=== PATIENT | male | born 1965 | race Caucasian/White ===

== ENCOUNTER 2022-11-15 07:41 | Outpatient (REF) | payer OTHER, SELFPAY ==
--- NOTE | ~2022-11-15 | XR_ITS ---
EXAMINATION: XR KNEE, LEFT CLINICAL INFORMATION: Left knee pain. COMPARISON: 05/02/2022 TECHNIQUE: Three views of the left knee. FINDINGS: Appearance is similar to previous. Hardware is not changed in position. There is loss of joint space medially and laterally with likely meniscal calcifications and marginal spurring. This is felt to be mildly worsening from previous exam. The patella is fairly well seated on the sunrise image. Likely postsurgical change proximal tibial metaphysis. Mild patellofemoral spurring. XR/XR knee LT 3V IMPRESSION: Findings suggest an ongoing degeneration in the left knee from previous with some increased loss of joint space medially and laterally. Meniscal calcifications are noted.
== END 2022-11-15 07:42 | disposition home or self-care (01) ==
LOC: HO.HOSX 07:41
PROVIDERS: Visit Provider Orthopaedic Surgery
DX: M25.562 Pain in left knee (principal)
CPT/HCPCS: 73562; 99202

== ENCOUNTER 2022-11-15 12:58 | Outpatient (AMB) | payer OTHER, SELFPAY ==
--- NOTE | 2022-11-15 13:10 | A.OFFVIS_ITS ---
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 The patient has undergone bilateral anterior cruciate ligament reconstructive surgeries in the past. He underwent left knee anterior cruciate ligament reconstruction surgery in approximately 1989 after injuring his knee while skiing. The patient also underwent right knee anterior cruciate ligament reconstruction after suffering an injury while playing indoor soccer. He did undergo left knee arthroscopic surgery in 2008. That surgery gave him fairly good relief. He states when he was changing position when sleeping and he felt a sharp pain in the medial aspect of the knee last fall. The patient states that he has been evaluated by other orthopedic surgeons in the past. One orthopedic surgeon recommended proceeding with total knee replacement surgery because he did not feel that arthroscopic surgery would give him any significant relief. Another orthopedic surgeon feels that arthroscopic surgery would indeed give the patient significant relief. At this point the patient questions whether not an arthroscopic procedure would likely give him significant relief or potentially aggravate his symptoms. The patient presents here for a second opinion. Allergies cephalexin Allergy (Unknown, Verified 11/15/22 13:13) Rash piroxicam [Feldene] Allergy (Unknown, Verified 11/15/22 13:13) Rash prednisone Allergy (Unknown, Verified 11/15/22 13:13) Rash PFSH Social History (Updated 11/15/22 @ 13:13 by Inga Klein) Alcohol intake: current Patient Tobacco Use Status: Never used Tobacco Physical Exam Const Other: Well-nourished well-developed very friendly male awake alert and oriented x3 in no acute distress Extrem Other: Left knee examination shows that the surgical incisions are well healed, no erythema, no signs of infection, full active extension and flexion to 115 degrees, tenderness along his medial and lateral joint lines, minimal crepitus with range of motion Results Reviewed Results Reviewed: X-rays of the patient's left knee taken today show moderate diffuse joint space narrowing, no acute bony abnormalities MRI of the patient's left knee shows mild to moderate diffuse degenerative changes as well as tearing of his medial and lateral menisci, partial tearing of the anterior cruciate ligament graft but no full-thickness tear noted Assessment & Plan Assessment & Plan (1) Left knee pain: Code(s): M25.562 - Pain in left knee Plan: Mr. Basilio presents with progressively worsening left knee pain and mechanical symptoms due to early degenerative joint disease as well as tearing of his medial and lateral menisci. I had a lengthy discussion with the patient regarding the treatment options. The patient does have a tentative plan to undergo arthroscopic surgery by another orthopedic surgeon with possible PRP injections to follow if needed. The patient questions whether not the planned arthroscopic surgery could aggravate or worsen his symptoms. I discussed with the patient the fact that I do not feel that the arthroscopic surgery will cause his symptoms to be worse. Most likely his symptoms will improve significantly following arthroscopic surgery due to the meniscus tearing and his symptoms. The patient will follow-up with his primary orthopedic surgeon as scheduled. If the patient wishes to have me perform his arthroscopic surgery I have no problem with this. He will contact my office to pick a surgery date if he chooses to do so. Feel free to call me at any time should questions regarding his orthopedic management arise. Orders: Orders XR knee LT 3V 11/15/22 M25.562 - Pain in left knee Coding Level of Care Code New Pt Level 2 (01379) Diagnoses Left knee pain M25.562
== END 2022-11-15 13:50 | disposition home or self-care (01) ==
PROVIDERS: PCP Internal Medicine; Visit Provider Orthopaedic Surgery
DX: M25.562 Pain in left knee (principal)
CPT/HCPCS: 99202

== ENCOUNTER 2022-12-18 14:02 | Outpatient (AMB) | payer OTHER, SELFPAY ==
--- NOTE | 2022-12-18 14:09 | MHC.OFFVIS ---
Intake Vital Signs 12/18/22 14:10 Height 5 ft 9 in Weight 175 lb BMI 25.8 Intake Visit Reasons: Pre-Lt Knee Arthroscopy Intake Note: Celestine is a 57 year old male who presents today for his left knee pain. The patient has undergone bilateral anterior cruciate ligament reconstructive surgeries in the past. He underwent left knee anterior cruciate ligament reconstruction surgery in approximately 1989 after injuring his knee while skiing. The patient also underwent right knee anterior cruciate ligament reconstruction after suffering an injury while playing indoor soccer. He did undergo left knee arthroscopic surgery in 2008. That surgery gave him fairly good relief. He states when he was changing position when sleeping and he felt a sharp pain in the medial aspect of the knee last fall. The patient states that he has been evaluated by other orthopedic surgeons in the past. One orthopedic surgeon recommended proceeding with total knee replacement surgery because he did not feel that arthroscopic surgery would give him any significant relief. Another orthopedic surgeon feels that arthroscopic surgery would indeed give the patient significant relief. At this point the patient questions whether not an arthroscopic procedure would likely give him significant relief or potentially aggravate his symptoms. Pain management agreement reviewed and signed. Allergies cephalexin Allergy (Unknown, Verified 12/18/22 14:15) Rash piroxicam [Feldene] Allergy (Unknown, Verified 12/18/22 14:15) Rash prednisone Allergy (Unknown, Verified 12/18/22 14:15) Rash Medication List - Last Reconciled 12/18/22 by Guzman Wells MD oxycodone 5 mg PO Q6H PRN tadalafil 20 mg PO DIRECTED tamsulosin 0.4 mg PO DAILY PFSH Social History Alcohol intake: current Patient Tobacco Use Status: Never used Tobacco Physical Exam Vital Signs: BMI result Body Mass Index 25.8 Const Other: Well-nourished well-developed very friendly male awake alert and oriented x3 in no acute distress Extrem Other: Bilateral lower extremity examination shows good capillary refill, no skin lesions noted, normal sensation light touch Left knee examination shows minimal crepitus with range of motion, tenderness along his medial and lateral joint lines, positive Gail's test, no instability Results Reviewed Results Reviewed: MRI of the patient's left knee shows mild diffuse degenerative changes as well as tearing of his medial and lateral menisci, thickened plica, no acute bony abnormalities Assessment & Plan Assessment & Plan (1) Tear of medial meniscus of left knee: Code(s): S83.242A - Other tear of medial meniscus, current injury, left knee, initial encounter Plan: Ms. Basilio presents with progressively worsening left knee pain and mechanical symptoms due to early degenerative joint disease as well as tearing of his medial and lateral menisci and plica syndrome. I had a lengthy discussion with the patient regarding the treatment options. At this point he has failed continued non-operative treatments. I do feel that the patient will get significant relief from his discomfort and mechanical symptoms from an arthroscopic procedure. The patient does understand that he may not get 100% relief of his symptoms depending on the severity of his degenerative changes. The patient was given a prescription for oxycodone at his preoperative appointment. He will follow-up as instructed. Feel free to call me at any time should questions regarding his orthopedic management arise. I spent 20 minutes in reviewing the patient's records and imaging studies, seeing the patient and documenting in the medical record. Medications: New oxycodone Partial Fill upon patient request. 5 mg PO Q6H PRN 20 tabs 0RF pain Coding Level of Care Code Est Pt Level 2 (65332) Diagnoses Tear of medial meniscus of left knee S83.242A
[2022-12-18 14:10] VITALS: BMI 25.8
== END 2022-12-18 14:30 | disposition home or self-care (01) ==
PROVIDERS: PCP Internal Medicine; Visit Provider Orthopaedic Surgery
DX: S83.242A Other tear of medial meniscus, current injury, left knee, initial encounter (principal)
CPT/HCPCS: 99212

== ENCOUNTER → 2022-12-18 14:02 | Outpatient (BNVA) | payer OTHER, SELFPAY | PROVIDERS: PCP Internal Medicine; Visit Provider Orthopaedic Surgery | DX: S83.242D Other tear of medial meniscus, current injury, left knee, subsequent encounter (principal) | CPT/HCPCS: 99212 ==

== ENCOUNTER 2022-12-28 09:24 | Day surgery (SDC) | payer OTHER, SELFPAY ==
[2022-12-26 09:40] VITALS: BMI 25.8
--- NOTE | 2022-12-27 12:13 | P.CONAN_ITS ---
Documented by User: Rhina Kim NP 12/27/22 12:59 HPI - Anesthesia Eval Consult details Narrative: 57yo M for Left Knee Arthroscopy,poss partial medial meniscus,poss partial lateral meniscus PMFSH Active Problems Active Problems: All Active Problems (Updated 12/26/22 @ 09:39 by Cecilia Valente RN) Tear of medial meniscus of left knee (Acute) Left knee pain (Acute) Past Medical History Medical History (Updated 12/26/22 @ 09:39 by Cecilia Valente RN) BPH (benign prostatic hyperplasia) Surgical History Surgical History (Updated 12/26/22 @ 09:39 by Cecilia Valente RN) Hx of arthroscopy of left knee History of repair of anterior cruciate ligament of right knee History of repair of anterior cruciate ligament of left knee Social History Social History Alcohol intake: current Patient Tobacco Use Status: Never used Tobacco Advance Directives: No Advance Directives Information Provided: Yes Meds Allergies Allergy/AdvReac Type Severity Reaction Status Date / Time cephalexin Allergy Unknown Rash Verified 12/18/22 14:15 piroxicam [Feldene] Allergy Unknown Rash Verified 12/18/22 14:15 prednisone Allergy Unknown Rash Verified 12/18/22 14:15 Active Medications: Current Medications Clindamycin Phosphate (Cleocin) 900 mg in 50 mls @ 50 mls/hr IV PREOP ONE Stop: 12/28/22 01:00 Home Medications Medication Instructions Recorded Confirmed Last Taken Type tadalafil 20 mg tablet 20 mg PO DIRECTED 12/18/22 12/26/22 Unknown History tamsulosin 0.4 mg capsule 0.4 mg PO DAILY 12/18/22 12/26/22 Unknown History Exam Exam Date and Time: December 27, 2022 1213 Height,Weight and Vital Signs: Height 5 ft 9 in Weight 79.379 kg Assessment and Plan Assessment Anesthesia Assessment: Chart Reviewed Documented by User: Terry Cooper MD 12/28/22 09:27 [facility] Past Medical History Medical History (Updated 12/26/22 @ 09:39 by Cecilia Valente RN) BPH (benign prostatic hyperplasia) Family History Family history of problems with anesthesia: No Surgical History Surgical History (Updated 12/26/22 @ 09:39 by Cecilia Valente RN) Hx of arthroscopy of left knee History of repair of anterior cruciate ligament of right knee History of repair of anterior cruciate ligament of left knee History of Problems with Anesthesia: No Social History Social History Alcohol intake: current Patient Tobacco Use Status: Never used Tobacco Advance Directives: No Advance Directives Information Provided: Yes Meds Allergies Allergy/AdvReac Type Severity Reaction Status Date / Time cephalexin Allergy Unknown Rash Verified 12/18/22 14:15 piroxicam [Feldene] Allergy Unknown Rash Verified 12/18/22 14:15 prednisone Allergy Unknown Rash Verified 12/18/22 14:15 Home Medications Medication Instructions Recorded Confirmed Last Taken Type tadalafil 20 mg tablet 20 mg PO DIRECTED 12/18/22 12/26/22 Unknown History tamsulosin 0.4 mg capsule 0.4 mg PO DAILY 12/18/22 12/26/22 Unknown History Exam Airway Mallampati Class: II TM Dist: >3cm Neck ROM: Full Heart: rrr Lungs: cta Assessment and Plan Assessment Anesthesia Assessment: Anesthesia Plan Discussed Final Anesthetic Review Family History of Problems with Anesthesia: No History of Problems with Anesthesia: No NPO: Yes ASA Class: II Final Preanesthetic Review: No Changes in Pt Med Stat, Meds/Allgs Chart Reviewed, Consent Obtained/Reviewed and Anes Risks/Benef Reviewed Patient Risk: Low Procedure Risk: Low Anesthetic Plan Anesthetic Plan: GA and Agree w/ Assess. and Plan Disposition: Standard PACU
[2022-12-28] VITALS (7 sets, daily range): BP systolic 86–154; BP diastolic 50–93; PULSE 58–78; RESP 14–16; TEMP 36.1–36.4; O2SAT 94–99; BMI 25.8
[2022-12-28] MEDS: Lactated Ringers 1,000 ML 100 ML IVCONT (10:15)
--- NOTE | 2022-12-28 11:40 | P.BOP_ITS ---
Brief Operative Note Date of Service: 12/28/22 Pre-op diagnosis: Left knee degenerative joint disease, left knee medial meniscus tear, left knee lateral meniscus tear Post-op diagnosis: same Procedure: Left knee arthroscopy with left knee arthroscopic partial medial and lateral meniscectomies, left knee arthroscopic plica excision, left knee arthroscopic chondroplasty of the undersurface of the patella Surgeon: Guzman Wells MD Anesthesia: GLMA Was an It Systems Engineer used for this Procedure?: No Estimated blood loss (mL): 10 Pathology: none sent Condition: stable Disposition: PACU
--- NOTE | 2022-12-28 11:42 | P.OP_ITS ---
Operative Note Operative Note Date of Service: 12/28/22 Narrative: After the patient was identified as Celestine Basilio and their left knee was initialed by myself they were brought to the operating room where general anesthesia was induced by the anesthesiologist in routine fashion. Because of the patient's allergy to Keflex he was given 900 mg of IV clindamycin preoperatively for infection prophylaxis. The patient's left lower extremity was prepped and draped in sterile fashion. A formal time-out was completed. Marcaine was injected into the planned incision sites as well as the patient's left knee joint. A #11 scalpel blade was used to make an anterolateral portal 1 cm proximal to the joint line and 1 cm lateral to the patellar tendon. Blunt trocar technique was used to enter the suprapatellar pouch with the knee in extension. Diagnostic arthroscopy showed multiple bands of thickened plica which would be excised at the end of the procedure. There were no loose bodies or abnormalities found in either the medial or lateral gutters. The articular surface of the patella showed diffuse grades 1 and 2 degenerative changes. The trochlear groove articular surface showed diffuse grades bone degenerative changes. The patient's knee was flexed to 45 degrees and a valgus force was placed upon it. The medial compartment was entered. An anteromedial portal was made 1 cm proximal to the joint line and 1 cm medial to the patellar tendon. Probing of the medial meniscus showed a radial tear of the posterior horn. A partial medial meniscectomy was performed using the arthroscopic shaver. Following the partial meniscectomy the remainder of the meniscus tissue was s table. There were diffuse grade 2 degenerative changes of the medial femoral condyle as well as grades bone degenerative changes of the medial tibial plateau. The articular surfaces of the medial tibial plateau and medial femoral condyle were already smooth so no chondroplasty was indicated. The patient's knee was placed into a neutral position. There was degenerative fraying of the anterior cruciate ligament graft measuring less than 20% of the tendon with. The frayed fibers were debrided using the arthroscopic shaver. The patient's knee was then placed in the figure of 4 position and the lateral compartment was entered. There was a radial tear of the anterior horn of the lateral meniscus. A partial lateral meniscectomy was performed using the arthroscopic shaver. Following the partial meniscectomy the remainder of the meniscus tissue was stable. There were minimal degenerative changes of the lateral femoral condyle and lateral tibial plateau. The patient's knee was once again brought into extension and the suprapatellar pouch was entered. The arthroscopic shaver and the ArthroCare Wand were used to excise the thickened bands of plica. The undersurface of the patella was then made smooth using the arthroscopic shaver. The articular surface of the trochlear groove was already smooth so no chondroplasty was indicated. The knee joint was irrigated and then drained. All arthroscopic instruments were removed. The 2 portals were closed with 3-0 nylon interrupted suture. The knee joint was injected with Marcaine. Dry sterile dressing and Marvin bandages were placed over the patient's knee. The patient was awoken and extubated in the operating room. The patient was transferred to the recovery room in stable condition.
== END 2022-12-28 12:53 | disposition home or self-care (01) ==
PROVIDERS: PCP Internal Medicine; Visit Provider Orthopaedic Surgery
PROC: (CPT 29870; principal; 2022-12-28 11:10)
DX: S83.242A Other tear of medial meniscus, current injury, left knee, initial encounter (principal); S83.282A Other tear of lateral meniscus, current injury, left knee, initial encounter; M17.12 Unilateral primary osteoarthritis, left knee; X58.XXXA Exposure to other specified factors, initial encounter; Y93.9 Activity, unspecified; Y92.9 Unspecified place or not applicable; Y99.8 Other external cause status; C61 Malignant neoplasm of prostate; Z79.899 Other long term (current) drug therapy; Z88.1 Allergy status to other antibiotic agents
CPT/HCPCS: 29880; J0131; J0171; J1100; J1885; J2371; J2405; J2795

== ENCOUNTER → 2022-12-28 09:24 | Outpatient (BNV) | payer OTHER, SELFPAY | PROVIDERS: PCP Internal Medicine; Visit Provider Orthopaedic Surgery | DX: S83.232A Complex tear of medial meniscus, current injury, left knee, initial encounter (principal); S83.272A Complex tear of lateral meniscus, current injury, left knee, initial encounter | CPT/HCPCS: 29880 ==

== ENCOUNTER 2023-01-10 13:47 | Outpatient (AMB) | payer OTHER, SELFPAY ==
--- NOTE | 2023-01-10 13:36 | MHC.OFFVIS ---
Intake Vital Signs 01/10/23 13:55 Height 5 ft 9 in Weight 175 lb BMI 25.8 Intake Visit Reasons: PO-Lt Knee 12/28/22 Intake Note: Celestine a 57 year old male presents today for a post operative left knee , DOS 12/28/22 Patient reports his pain level is currently 4 out of 10, states jolting pain. He has concerns of swelling. Allergies cephalexin Allergy (Severe, Verified 01/10/23 13:57) Rash piroxicam [Feldene] Allergy (Severe, Verified 01/10/23 13:57) Rash prednisone Allergy (Severe, Verified 01/10/23 13:57) Rash HPI PO-Lt Knee 12/28/22 HPI Details 57-year-old male who returns to the office today for post-op left knee , 12/28/22. He continues to have ?jolting? pain and swelling in his knee and rates the pain as 4 on the scale of 0-10. He is doing well otherwise and has no concerns today. [facility] Medical History (Updated 01/10/23 @ 14:37 by Katina Christensen PA-C) Prostate CA History of brachytherapy BPH (benign prostatic hyperplasia) Surgical History History of hernia surgery Hx of arthroscopy of left knee History of repair of anterior cruciate ligament of right knee History of repair of anterior cruciate ligament of left knee Social History Alcohol intake: current Alcohol intake frequency: holidays/special occasions only Patient Tobacco Use Status: Never used Tobacco Review of Systems Const All systems reviewed & are unremarkable except as noted in HPI and below Physical Exam Vital Signs: BMI result Body Mass Index 25.8 Extrem Other: Left knee: Incision clean, dry and intact. No erythema or joint effusion. ROM 0-100 degrees. Calf supple, nontender. NVI. Results Reviewed Results Reviewed: Date of Service: 12/28/22 Pre-op diagnosis: Left knee degenerative joint disease, left knee medial meniscus tear, left knee lateral meniscus tear Post-op diagnosis: same Procedure: Left knee arthroscopy with left knee arthroscopic partial medial and lateral meniscectomies, left knee arthroscopic plica excision, left knee arthroscopic chondroplasty of the undersurface of the patella Surgeon: Guzman Wells MD Assessment & Plan Assessment & Plan (1) Tear of medial meniscus of left knee: Code(s): S83.242A - Other tear of medial meniscus, current injury, left knee, initial encounter Qualifiers: Tear current or old: current Encounter type: subsequent encounter Meniscus tear of knee type: peripheral Qualified Code(s): S83.222D - Peripheral tear of medial meniscus, current injury, left knee, subsequent encounter Plan Sutures removed today, steri strips applied. He was given a handout on some home exercises he can work on to improve his ROM and quad strength. He will increase activity as tolerated. I did review his postoperative photos and answered all questions he had about the procedure. He will return in [address] Wells for a follow-up, sooner if needed. Patient Instructions: Scribed for Katina Christensen PA-C, by Cruz Jacobs medical staff director, on 01/10/2023 at 2:00 PM EST. I, Katina Christensen PA-C, have personally reviewed and agree with the information entered by the scribe. Coding Level of Care Code Global (50826) Diagnoses Peripheral tear of medial meniscus of left knee as current injury, subsequent encounter S83.222D Tear current or old: current Encounter type: subsequent encounter Meniscus tear of knee type: peripheral
[2023-01-10 13:55] VITALS: BMI 25.8
== END 2023-01-10 14:30 | disposition home or self-care (01) ==
PROVIDERS: PCP Internal Medicine; Visit Provider Physician Assistant
DX: S83.222D Peripheral tear of medial meniscus, current injury, left knee, subsequent encounter (principal)
CPT/HCPCS: 99024

== ENCOUNTER → 2023-01-10 13:47 | Outpatient (BNVA) | payer OTHER, SELFPAY | PROVIDERS: PCP Internal Medicine; Visit Provider Physician Assistant ==

== ENCOUNTER 2023-02-07 13:35 | Outpatient (AMB) | payer OTHER, SELFPAY ==
--- NOTE | 2023-02-07 13:36 | MHC.OFFVIS ---
Intake Intake Visit Reasons: PO-Lt Knee 12/28/22 Intake Note: Celestine is a 57 year old male presents today for a post operative s/p left knee , DOS 12/28/22 DR. He reports mild intermittent discomfort in his left knee. Allergies cephalexin Allergy (Severe, Verified 02/07/23 13:36) Rash piroxicam [Feldene] Allergy (Severe, Verified 02/07/23 13:36) Rash prednisone Allergy (Severe, Verified 02/07/23 13:36) Rash PFSH Medical History (Updated 01/10/23 @ 14:37 by Katina Christensen PA-C) Prostate CA History of brachytherapy BPH (benign prostatic hyperplasia) Surgical History History of hernia surgery Hx of arthroscopy of left knee History of repair of anterior cruciate ligament of right knee History of repair of anterior cruciate ligament of left knee Social History Alcohol intake: current Alcohol intake frequency: holidays/special occasions only Patient Tobacco Use Status: Never used Tobacco Physical Exam Extrem Other: Left knee examination shows that the incisions are well healed, minimal swelling Assessment & Plan Assessment & Plan (1) Left knee pain: Code(s): M25.562 - Pain in left knee Plan Mr. Basilio is doing well after undergoing left knee arthroscopic surgery on 12/28/2022. He will gradually progress to activities as tolerated. I discussed with the patient the fact that his symptoms should continue to improve over the next few months. He can gradually resume his normal exercise program as long as the exercises do not cause him any significant increase in his discomfort. He will follow up with me on an as-needed basis should his symptoms not plateau at an unacceptable level over the next few months. Coding Level of Care Code Global (36223) Diagnoses Left knee pain M25.562
== END 2023-02-07 13:53 | disposition home or self-care (01) ==
PROVIDERS: PCP Internal Medicine; Visit Provider Orthopaedic Surgery
DX: M25.562 Pain in left knee (principal)
CPT/HCPCS: 99024

== ENCOUNTER → 2023-02-07 13:35 | Outpatient (BNVA) | payer OTHER, SELFPAY | PROVIDERS: PCP Internal Medicine; Visit Provider Orthopaedic Surgery ==